=== PATIENT | male | born 1990 | race Caucasian/White ===

== ENCOUNTER 2020-02-26 12:00 | Outpatient (RCR) | payer OTHER, SELFPAY ==
--- NOTE | 2020-02-29 10:53 | P.PNPSO_ITS ---
Subjective Subjective Date of Service: 02/26/20 Reason For Visit: depression Interim History: Patient reporting he is doing very well. Depressive sx well managed. Denies any side effects from medication Still engaged in therapy with Destiny Arguello. Discussed transitioning care to PCP as regimen is straightforward. He reports he has not yet established care with a PCP in this area. Medication Compliance: Yes Side effects from medications: No Review of Systems Review of Systems Yes all other systems are reviewed and are negative Mental Status Exam Mental Status Exam Level of Consciousness: Appropriate Mood Description: Calm Affect Description: Calm Speech Pattern: Clear Thought Process: Intact Thought Content: positive for Intact Discharge Plan Discharge Attending provider: Donna Guardado Medications: No Action escitalopram oxalate [Lexapro] 10 mg tablet 10 mg PO DAILY Qty: 30 RF: 5 Assessment & Plan Assessment & Plan (1) Major depressive disorder, recurrent, mild: Status: Acute Code(s): F33.0 - Major depressive disorder, recurrent, mild Assessment and Plan: No change to current regimen Will contact this commercial underwriter in May to schedule follow up for June Greater than 50% of the session was spent on counseling and/or coordination of care
== END 2020-04-14 23:55 | disposition home or self-care (01) ==
LOC: HO.PAOS 12:00
PROVIDERS: Visit Provider Nurse Practitioner Psychiatric/Mental Health
DX: F33.0 Major depressive disorder, recurrent, mild (principal); Z79.899 Other long term (current) drug therapy

== ENCOUNTER 2020-03-24 10:00 | Outpatient (RCR) | payer OTHER, SELFPAY | END 2020-03-24 23:55 | disposition home or self-care (01) | LOC: HO.PAOS 10:00 | PROVIDERS: Visit Provider Counselor Mental Health | DX: F33.1 Major depressive disorder, recurrent, moderate (principal); F41.9 Anxiety disorder, unspecified | CPT/HCPCS: 90834 ==